=== PATIENT | male | born 1980 | race Caucasian/White ===

== ENCOUNTER 2018-06-23 19:55 | Emergency (ER) | payer OTHER ==
[~2018-06-23] VITALS: Ht 172.7 cm; Wt 72.6 kg
--- NOTE | 2018-06-23 20:49 | NUR ---
SE RECIBE PTE EL CUAL REFIERE PRESENTAR ASTHAM DESDE LA TARDE DE HOY PTE INDICA TRATAR DE MANEJAR LA MISMA CON ALBUTEROL EN COLLAZO HOGAR CALVIN CONTINUA CON LA MISMA.
--- NOTE | 2018-06-23 22:19 | NUR ---
SE ORIENTA PTE SOBRE TX MEDICO EL CUAL REFIERE ENTENDER.SE LE EXTRAEN MUESTRAS,SE CANALIZA Y SE ADMINISTRA MEDICAMENTO АЛЕКСАНДР ORDEN MEDICA,SE NOTIFICAN ABG Y TERAPIAS RESP A MS ALARCON.
--- NOTE | 2018-06-24 15:42 | NUR ---
PT ALERTA Y ORIENTADO X3 ESFERAS SE RECIBE EN PARK CON BARANDAS ELEVADAS Y FRENOS COLOCADOS. HEPARIN LOCK PATENTE. PT TOLERA TX. PT TRANQUILO Y SIN DIFICULTAD RESPIRATORIA. PENDIETNE INTERNISTA.
--- NOTE | 2018-06-24 17:31 | NUR ---
PTE ALERTA Y ORIENTADO X3 ES ADMITIDO CALVIN PTE REFIERE NO QUERER QUEDARSE.M SE ORIENTA AL MISMO. PTE FIRMA DOCUMENTACION DEL LAMA Y SE RETIRA BAJO COMPANIA DE FAMILIAR.
== END 2018-06-24 17:00 | disposition left against medical advice (07) ==
LOC: ER 19:55 → SEC-K 06-24 16:04 → ER 06-24 16:04 → SEC-K 06-24 17:00 → ER 06-24 17:00
DX: J45.998 Other asthma (principal); R09.02 Hypoxemia